=== PATIENT | male | born 1990 | race African-American/Black ===

== ENCOUNTER 2016-12-22 10:48 | Emergency (ER) | payer SELFPAY ==
[~2016-12-22] VITALS: Ht 170.2 cm; Wt 81.6 kg
[2016-12-22] MEDS ORDERED: METOCLOPRAMIDE HCL 10MG/2ML VIAL IV ONE (11:30)
[2016-12-22] MEDS ORDERED: KETOROLAC 30MG/ML VIAL IV ONE (11:30)
[2016-12-22] MEDS ORDERED: SODIUM CHLORIDE 0.9% 1,000 ML IV ONE (11:30)
[2016-12-22] MEDS ORDERED: DIPHENHYDRAMINE 50MG/ML VIAL IV ONE (11:30)
[2016-12-22 12:40] VITALS: BP 136/84
== END 2016-12-22 12:48 | disposition home or self-care (01) ==
LOC: ER 10:58
DX: R51 Headache (principal); F17.210 Nicotine dependence, cigarettes, uncomplicated
CPT/HCPCS: 96374; 96375; 99284; J1200; J1885; J2765; J7030

== ENCOUNTER 2021-02-20 20:09 | Emergency (ER) | payer MEDICAID ==
[~2021-02-20] VITALS: Ht 177.8 cm; Wt 96.0 kg
[2021-02-20 20:37] VITALS: BP 169/84
== END 2021-02-20 20:37 | disposition short-term general hospital (02) ==
LOC: ER 20:09
DX: S21.142A Puncture wound with foreign body of left front wall of thorax without penetration into thoracic cavity, initial encounter (principal); X95.9XXA Assault by unspecified firearm discharge, initial encounter; Y93.89 Activity, other specified; Y92.488 Other paved roadways as the place of occurrence of the external cause; J45.909 Unspecified asthma, uncomplicated
CPT/HCPCS: 71045; 99285